=== PATIENT | female | born 1995 | race Caucasian/White ===

== ENCOUNTER 2019-08-29 12:11 | Emergency (ER) | payer OTHER ==
[2019-08-29] MEDS ORDERED: Acetaminophen 325 MG TAB ONE (12:52)
[2019-08-29 13:24] LABS: Bacteria/HPF 4+ HPF (None Seen); Bilirubin Negative (Negative); Blood, Urine Negative (Negative); Clarity Clear (Clear); Glucose, Urine (Dipstick) Normal (Negative); Leukocyte 75 Leu/uL (Negative); Nitrite Negative (Negative); Protein, Urine (Dipstick) Negative (Neg-Trace); RBC/HPF 0-3 HPF (0-3); Urobilinogen Normal mg/dL (Less than 2)
[2019-08-29 14:31] LABS: #Lymphocytes 0.4 thou/uL (1.20-3.40); #Monocytes 0.6 thou/uL (0.11-0.59); #Neutrophils 5.5 thou/uL (1.40-6.50); %Eosinophils 0.3 % (0.0-10.0); %Lymphocytes 5.8 % (21.0-51.0); %Monocytes 8.7 % (0.0-10.0); %Neutrophils 85.2 % (42.0-75.0); Hemoglobin 10.6 g/dL (12.0-16.0); Mean Corpuscular HGB CONC 35.2 g/dL (32.0-36.0); Mean Corpuscular Hemoglobin 30.8 pg (27.0-31.0); Mean Corpuscular Volume 87.6 fL (78.0-98.0); Mean Platelet Volume 7.7 fL (7.4-10.4); Platelet Count 202 thou/uL (130-400); RBC Distribution Width 11.3 % (11.5-14.5); Red Blood Cell (RBC) Count 3.44 mill/uL (4.20-5.40); White Blood Cell (WBC) Count 6.5 thou/uL (4.8-10.8)
[2019-08-29 14:56] LABS: ALT (SGPT) 7 U/L (8-55); AST (SGOT) 13 U/L (5-34); Albumin 3.7 g/dL (3.5-5.0); Alkaline Phosphatase 90 U/L (40-110); Anion Gap 14 mmol/L (10-20); BUN (Urea Nitrogen) 6 mg/dL (7.0-18.7); Bilirubin, Total 0.5 mg/dL (0.2-1.2); Calc. Creatinine Clearance 0 mL/min (70-130); Calcium 9.3 mg/dL (7.8-10.44); Carbon Dioxide 20 mmol/L (22-29); Chloride 104 mmol/L (98-107); Estimated GFR-MDRD Greater than 90; Globulin 3.3 g/dL (2.4-3.5); Glucose 97 mg/dL (70-105); Sodium 134 mmol/L (136-145)
[2019-08-29] MEDS ORDERED: cefTRIAXone\\ROCEPHIN 2 GM VIAL ONE (15:35)
== END 2019-08-29 17:25 | disposition home or self-care (01) ==
LOC: ERS 12:11
DX: O23.12 Infections of bladder in pregnancy, second trimester (principal); O99.512 Diseases of the respiratory system complicating pregnancy, second trimester; J10.1 Influenza due to other identified influenza virus with other respiratory manifestations; Z3A.24 24 weeks gestation of pregnancy
CPT/HCPCS: 36415; 80053; 81003; 81015; 85025; 87077; 87086; 87804; 96365; J0696

== ENCOUNTER 2019-12-14 05:30 | Inpatient (IN) | payer OTHER ==
[2019-12-14 06:05] VITALS: BMI 33.5
[2019-12-14] MEDS: Lactated Ringer's 1,000 ML IV SCH ×2 (06:50→11:09)
[2019-12-14 07:17] LABS: Mean Corpuscular HGB CONC 33.6 g/dL (32.0-36.0); Mean Corpuscular Hemoglobin 29.7 pg (27.0-31.0); Mean Corpuscular Volume 88.4 fL (78.0-98.0); Mean Platelet Volume 9.4 fL (7.4-10.4); Platelet Count 177 thou/uL (130-400); Red Blood Cell (RBC) Count 3.38 mill/uL (4.20-5.40); White Blood Cell (WBC) Count 6.8 thou/uL (4.8-10.8)
[2019-12-14] MEDS ORDERED: Penicillin G Potassium 5 MILL.UNITS VIAL ONE (07:26)
[2019-12-14] MEDS ORDERED: NS w/ Oxytocin 10 units 500 ML ONE (07:27)
[2019-12-14] MEDS ORDERED: Sodium Chloride 0.9% 100 ML ONE (07:27)
[2019-12-14] MEDS ORDERED: Ibuprofen 800 MG TAB PO PRN (07:30)
[2019-12-14] MEDS ORDERED: Acetaminophen 500 MG TAB PO PRN (07:30)
[2019-12-14] MEDS ORDERED: HYDROcodone/Acetaminophen 5/325 mg Tablet PO PRN ×3 (07:30→21:53)
[2019-12-14] MEDS ORDERED: NS / Oxytocin 40 units/1000ml 1,000 ML IV PRN (07:30)
[2019-12-14] MEDS ORDERED: Butorphanol Tartrate 1 MG/ML VIAL SLOW IVP PRN (07:30)
[2019-12-14] MEDS ORDERED: Promethazine HCl 25 MG/ML VIAL IM PRN ×2 (07:30→12:24)
[2019-12-14] MEDS ORDERED: Lactated Ringer's 1,000 ML IV SCH (07:30)
[2019-12-14] MEDS ORDERED: NS w/ Oxytocin 10 units 500 ML IV SCH (07:30)
[2019-12-14] MEDS ORDERED: hydrALAZINE 20 MG/ML VIAL SLOW IVP PRN ×2 (07:30→21:53)
[2019-12-14] MEDS ORDERED: Lidocaine 1% (PF) 30 ML VIAL SC PRN (07:30)
[2019-12-14] MEDS ORDERED: Penicillin G Potassium 5 MILL.UNITS in Sodium Chloride 0.9% 100 ML IVPB SCH (07:30)
[2019-12-14] MEDS ORDERED: Ondansetron PF 4 MG/2 ML Vial IVP PRN ×2 (07:30→12:24)
[2019-12-14 07:36] LABS: Lymphocytes 37 % (21-51); MDiff Complete? YES; Monocytes 3 % (0-10); Neutrophil 60 % (42-75); Platelet Morphology Comment Appears Adequate; Polychromasia SLIGHT = 2-3 cells (100X) (0-2/hpf)
[2019-12-14 07:56] LABS: HBSAB Concentration 36.41 mIU/mL; Hep B Surf AB Reactive (NonReactive)
[2019-12-14 08:30] LABS: Syphilis Antibody Nonreactive (Nonreactive); Syphilis Antibody Index 0.03 S/CO (<1.00 Non-Reactive)
[2019-12-14] MEDS ORDERED: Fentanyl 4 mcg/Bup 0.1% Cadd 100 ML ONE (09:55)
[2019-12-14] MEDS: Penicillin G 2.5 MILL.units 2.5 MILL.UNITS in Premix Bag 1 BAG IVPB SCH ×2 (11:31→15:19)
[2019-12-14] MEDS ORDERED: Promethazine HCl 25 MG SUPP PR PRN (12:24)
[2019-12-14] MEDS ORDERED: diphenhydrAMINE 50 MG/ML VIAL IM PRN (12:24)
[2019-12-14] MEDS ORDERED: diphenhydrAMINE 50 MG/ML VIAL IVP PRN (12:24)
[2019-12-14] MEDS ORDERED: Naloxone HCl 0.4 mg/ml Vial IVP PRN ×2 (12:24)
[2019-12-14] MEDS ORDERED: Bupivacaine 0.25% 10 ML VIAL EPIDURAL PRN (12:24)
[2019-12-14] MEDS ORDERED: Zolpidem Tartrate 5 MG TAB PO PRN (12:24)
[2019-12-14] MEDS ORDERED: diphenhydrAMINE 25 MG CAP PO PRN (12:24)
[2019-12-14] MEDS ORDERED: Fentanyl 5 mcg/Bupivacaine 0.075% Cassette 100 ML EPIDURAL SCH (12:30)
[2019-12-14] MEDS ORDERED: Communication Order-Pharmacy FS SCH ×2 (12:30)
--- NOTE | 2019-12-14 13:10 | PDOC.LDHP ---
Labor and Delivery H&P Chief complaint: scheduled induction HPI: 24yo at 39 weeks for IOL secondary to COVID pandemic and desire to be delivered LEXIE. Favorable cervix. Current gestational age (weeks): 39 Due date: 12/21/19 Dating criteria: last menstrual period, first trimester ultrasound (12 week U/S confirms dating by LMP) Grav: 4 Para: 1 OB History Details: Somewhat inconsistent about care. Has no-showed last 2 appointments ambar to concerns about COVID and not wanting to come to the office. 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 Current medications: pre-ivy vitamins (Valtrex) Previous surgical history: none Allergies/Adverse Reactions: Allergies Allergy/AdvReac Type Severity Reaction Status Date / Time No Known Allergies Allergy Verified 12/14/19 05:57 Social history: none - Physical Exam Vital signs reviewed and normal: yes General: NAD, resting Heart: RRR Lungs: CTAB Abdomen: gravid Extremeties: no edema FHT: category 1 - Vaginal Exam cm dilated: 3 Effacement: 50% Station: -2 - OB Labs Blood type: B RH: positive Antibody Screen: negative HIV: negative RPR: negative HEPSAg: negative 1 hour GCT: negative GBS: positive Urine drug screen: not done Rubella: immune - Assessment L&D Assessment: elective induction at term - Plan Plan: admit to L&D, labor augmentation if indicated, GBS antibiotic prophylaxis , informed consent obtained, anesthesia consult for pain management
--- NOTE | 2019-12-14 13:16 | PDOC.EVN ---
Event Note - Event Note Event Note: AROM with large amount of clear fluid. FHT category I. SVE /-1. Continue pitocin. Has had PCN x2 for GBS positive status.
[2019-12-14] MEDS ORDERED: Bupivacaine 0.25% HCL 30 ML VIAL ONE (13:24)
--- NOTE | 2019-12-14 17:44 | PDOC.OPDEL ---
OB Operative/Delivery Note Delivery Dr/Surgeon: Obi Pre-Delivery Diagnosis: elective induction Procedure/Post Delivery Dx: spontaneous vaginal delivery (Head OA, nuchal cord x1, loose, shoulders and body easily followed. Infant placed on mother's abdomen. Cord clamped and cut. Mouth and nares bulb suctioned.) Weeks gestation: 39 Anesthesia: epidural - Findings A Sex: female - 1 min: 8 - 5 min: 9 - Additional Findings/Plan Placenta delivered: spontaneous (Intact, 3VC) Repaired Obstetrical Laceration: none Post delivery plan: routine recovery
[2019-12-14] MEDS ORDERED: Milk Of Magnesia 30 ML UDCUP PO PRN (21:53)
[2019-12-14] MEDS ORDERED: Bisacodyl 10 MG SUPP PR PRN (21:53)
[2019-12-14] MEDS ORDERED: NS / Oxytocin 40 units/1000ml 1,000 ML IV SCH (21:53)
[2019-12-14] MEDS ORDERED: Benzocaine-Menthol 82.5 ML CAN TOP PRN (21:53)
[2019-12-14] MEDS ORDERED: Lanolin Ointment 7 GM TUBE TOP PRN (21:53)
[2019-12-14] MEDS ORDERED: Docusate Calcium (SURFAK) 240 MG CAP PO SCH (22:15)
[2019-12-14] MEDS: Ibuprofen 800 MG TAB PO SCH (22:54)
[2019-12-15] MEDS: Ibuprofen 800 MG TAB PO SCH ×2 (05:07→14:00)
[2019-12-15] MEDS ORDERED: Ferrous Sulfate 325 MG TAB PO SCH (08:00)
[2019-12-15] MEDS ORDERED: Adacel (T-DAP) 0.5 ML SYRINGE IM ONE (09:00)
[2019-12-15] MEDS ORDERED: Docusate Calcium (SURFAK) 240 MG CAP PO SCH (09:00)
[2019-12-15 12:31] VITALS: BP 121/72; TEMP 98
--- NOTE | 2019-12-15 13:28 | PDOC.PP ---
Post Progress Note Post Day #: 1 Subjective: Doing well. No complaints. Ready to go home this PM. well. PO intake tolerated: yes Flatus: yes Ambulation: yes Vital Signs (12 hours) Temp Pulse Resp BP Pulse Ox 12/15/19 12:00 98.0 F 68 16 121/72 98 12/15/19 08:00 97.8 F 73 16 125/66 100 12/15/19 04:00 98.6 F 72 18 120/79 Weight Weight 195 lb - Physical Examination General: NAD Cardiovascular: no m/r/g, RRR Respiratory: clear to auscultation bilaterally, non-labored breathing Abdominal: + bowel sounds, lochia, no distention, appropriately TTP Extremities: negative homans (B) Neurological: no gross focal deficits Psychiatric: A&Ox3 Result Diagrams: 12/14/19 07:04 Additional Labs: Post Labs Blood Type B POSITIVE 12/14/19 07:04 (1) Vaginal delivery Code(s): O80 - ENCOUNTER FOR FULL-TERM UNCOMPLICATED DELIVERY Status: Acute - Assessment/Plan Routine PP care D/C home this PM when 24 hours PP well F/U in 6 weeks
== END 2019-12-15 17:45 | disposition home or self-care (01) | DRG 806 ==
LOC: L&D 05:33 → 3SW 20:24
PROVIDERS: ADMIT Family Medicine; ATTEND Family Medicine
PROC: 10E0XZZ Delivery of Products of Conception, External Approach (ICD-10-PCS; principal; 2019-12-14)
PROC: 10907ZC Drainage of Amniotic Fluid, Therapeutic from Products of Conception, Via Natural or Artificial Opening (ICD-10-PCS; 2019-12-14)
PROC: 3E033VJ Introduction of Other Hormone into Peripheral Vein, Percutaneous Approach (ICD-10-PCS; 2019-12-14)
DX: O99.824 Streptococcus B carrier state complicating childbirth (principal); O98.52 Other viral diseases complicating childbirth; Z37.0 Single live birth; Z3A.39 39 weeks gestation of pregnancy; B00.9 Herpesviral infection, unspecified; O69.81X0 Labor and delivery complicated by cord around neck, without compression, not applicable or unspecified; O69.89X0 Labor and delivery complicated by other cord complications, not applicable or unspecified; Z79.899 Other long term (current) drug therapy
CPT/HCPCS: 51702; 85025; 86706; 86780; 86850; 86900; 86901; J2540; J2590; J3490; S0020